=== PATIENT | male | born 1995 | race Two or more races ===

== ENCOUNTER 2018-01-04 12:54 | Emergency (ER) | payer BC, MEDICAID ==
[~2018-01-04] VITALS: Ht 167.6 cm; Wt 63.5 kg
[2018-01-04 13:11] VITALS: BP 130/70
[2018-01-04] MEDS ORDERED: LIDOCAINE MPF 1%-EPI 1:200,000 30 ML VIAL IJ ONE (13:29)
[2018-01-04] MEDS ORDERED: TDAP [DIPH/PERTUSSIS/TET] 0.5 ML VIAL IM ONE ×2 (14:39→15:00)
== END 2018-01-04 14:46 | disposition home or self-care (01) ==
LOC: ER 12:56
DX: S01.81XA Laceration without foreign body of other part of head, initial encounter (principal); F10.10 Alcohol abuse, uncomplicated; W51.XXXA Accidental striking against or bumped into by another person, initial encounter; Y93.66 Activity, soccer; Y92.89 Other specified places as the place of occurrence of the external cause; Y99.8 Other external cause status
CPT/HCPCS: 90715; A4606; A6402; J3490; Z7610